=== PATIENT | female | born 1955 | race Asian ===

== ENCOUNTER 2020-03-04 11:46 | Emergency (ER) | payer MEDICARE ==
[~2020-03-04] VITALS: Ht 160 cm; Wt 100.0 kg
[2020-03-04] MEDS ORDERED: INSLAN SQ (11:50)
[2020-03-04] MEDS ORDERED: ATEN-187 PO (11:51)
[2020-03-04] MEDS ORDERED: LISI-662 PO (11:51)
[2020-03-04] MEDS ORDERED: SITA1TBM7 PO (11:51)
[2020-03-04 12:33] VITALS: BP 121/66
[2020-03-04] MEDS ORDERED: AMLO10TA55 PO (12:43)
[2020-03-04] MEDS ORDERED: SITA1TAB6 PO (12:43)
== END 2020-03-04 13:51 | disposition home or self-care (01) ==
LOC: EMS 11:48
DX: L25.9 Unspecified contact dermatitis, unspecified cause (principal); E11.9 Type 2 diabetes mellitus without complications; I10 Essential (primary) hypertension; Z79.4 Long term (current) use of insulin; Z79.899 Other long term (current) drug therapy; Z88.1 Allergy status to other antibiotic agents

== ENCOUNTER 2020-12-07 13:31 | Inpatient (IN) | payer MEDICARE, OTHER ==
[~2020-12-07] VITALS: Ht 160 cm; Wt 85.4 kg
[~2020-12-07 13:31] MED LIST: AMLO10TA55 PO; ATEN-187 PO; INSLAN SQ; LISI-894 PO; SITA1TAB6 PO
[2020-12-07 15:30] LABS: ABG A-A DIFF O2 57.3 mmHg (10-20.0); ABG BASE EXCESS -3.4 mmol/L (-2.0-3.0); ABG CARBOXYHEMOGLOBIN 0.7 % (0.0-1.5); ABG METHEMOGLOBIN 0.3 % (0.0-1.5); ABG OXYGEN CONTENT 16.5 mL/dL (15.0-23.0); ABG OXYGEN SATURATION 88.7 % (95.0-98.0); ABG OXYHEMOGLOBIN 87.8 % (94.0-100.0); ABG PCO2 35 mmHg (35-45); ABG PH 7.404 (7.35-7.450); ABG TOTAL HEMOGLOBIN 13.4 G/dL (12.0-18.0); PO2, ARTERIAL BG 50.6 mmHg (79.0-87.0); SOURCE, BLOOD GAS ARTERIAL; TEMPERATURE, FAHRENHEIT, BG 98.6 FAHREN (96.0-98.6)
[2020-12-07] MEDS ORDERED: DEXAMETHASONE SOD PHOS 4 MG/ML VIAL IVP ONE (15:30)
[2020-12-07 15:32] LABS: O2 DEVICE,BLOOD GAS ROOM AIR (ROOM AIR); SITE, BLOOD GAS RT RADIAL
[2020-12-07 15:48] LABS: BASOPHILS % (AUTO) 0.4 % (0.0-2.0); EOSINOPHILS % (AUTO) 0.1 % (1.0-6.0); HEMATOCRIT 38.8 % (36-46); HEMOGLOBIN 12.9 g/dL (12.0-16.0); LYMPHOCYTES % (AUTO) 15.1 % (22.0-44.0); MEAN CORPUSCULAR HEMOGLOBIN 30.9 pg (26.0-34.0); MEAN CORPUSCULAR HGB CONC 33.3 G/dL (31.0-37.0); MEAN CORPUSCULAR VOLUME 93 fL (80-100); MONOCYTES # (AUTO) 0.4 K/uL (0.1-1.0); MONOCYTES % (AUTO) 5.2 % (2.0-9.0); NEUTROPHILS # (AUTO) 5.4 K/uL (1.8-7.7); NEUTROPHILS % (AUTO) 79.2 % (40.0-70.0); PLATELET COUNT (AUTO) 197 K/uL (150-450); RED BLOOD CELL COUNT(AUTO) 4.19 MIL/uL (4.00-5.20); RED CELL DISTRIBUTION WIDTH 13.1 % (11.5-14.5)
[2020-12-07 15:50] LABS: ANION GAP 15 mmol/L (8-16); CALCIUM, TOTAL 10.1 mg/dL (8.8-10.5); CARBON DIOXIDE 22 mmol/L (22-29); CHLORIDE 101 mmol/L (98-107); CREATININE 0.92 mg/dL (0.60-1.30); GLOMERULAR FILTR. RATE CALC > 60 mL/min (>60); GLUCOSE,RANDOM 237 mg/dL (70-110); POTASSIUM 3.7 mmol/L (3.5-5.1); SODIUM SERUM 138 mmol/L (136-145); UREA NITROGEN, BLOOD 8 mg/dL (7-18)
[2020-12-07 15:55] LABS: ALANINE AMINOTRANSFERASE 35 U/L (12-78); ALBUMIN 2.9 g/dL (3.4-5.0); ALKALINE PHOSPHATASE 81 U/L (46-116); ASPARTATE AMINOTRANSFERASE 45 U/L (15-37); BILIRUBIN,TOTAL 0.4 mg/dL (0.1-1.0); TOTAL PROTEIN, SERUM 8.2 g/dL (6.4-8.2)
[2020-12-07 15:58] LABS: INFLUENZA TYPE A NEGATIVE FOR TYPE A (NEGATIVE); INFLUENZA TYPE B NEGATIVE FOR TYPE B (NEGATIVE)
[2020-12-07 16:14] LABS: B-TYPE NATRIURETIC PEPTIDE 23 pg/mL (0-100)
[2020-12-07] MEDS ORDERED: DOXYCYCLINE HYCLATE 100 MG in DEXTROSE 5%-WATER 100 ML IV ONE (16:30)
[2020-12-07] MEDS ORDERED: CefTRIAXone 1 GM/DEXTROSE 50 ML IV ONE (16:30)
[2020-12-07] MEDS ORDERED: DEXTROSE 50%-WATER 25 GM/50 ML SYRINGE IVP PRN (16:45)
[2020-12-07] MEDS ORDERED: ONDANSETRON HCL 4 MG/2 ML VIAL IVP PRN (16:45)
[2020-12-07] MEDS ORDERED: ACETAMINOPHEN 325 MG TABLET PO PRN (16:45)
[2020-12-07 17:05] LABS: D-DIMER 1.84 mg/L FEU (0.00-0.50); PROTHROMBIN TIME 10.5 SEC (9.4-11.6)
[2020-12-07 17:28] LABS: C-REACTIVE PROTEIN QUANT 16.03 mg/dL (0.00-0.30)
[2020-12-07] MEDS ORDERED: REMDESIVIR 200 MG in SODIUM CHLORIDE 0.9% 250 ML IV ONE (18:00)
[2020-12-07] MEDS: INSULIN LISPRO 100 UNITS/ML SQ PRN ×2 (18:08→21:19)
[2020-12-07 18:16] LABS: GLUCOSE,POINT OF CARE 234 MG/DL (70-110)
[2020-12-07 19:36] VITALS: BP 131/87
[2020-12-07] MEDS: DOCUSATE SODIUM 100 MG CAPSULE PO SCH (20:56)
[2020-12-07] MEDS: BENZONATATE 100 MG CAPSULE PO PRN (20:56)
[2020-12-07] MEDS: APIXABAN 5 MG TABLET PO SCH (20:56)
[2020-12-07 22:02] LABS: GLUCOMETER DEV NAME(LOC) 5N.1B; GLUCOSE,POINT OF CARE 211 MG/DL (70-110)
[2020-12-08] MEDS ORDERED: PNEUMOCOCCAL VACCINE POLYVALENT 0.5 ML VIAL [PPSV23] IM ONE (00:15)
[2020-12-08 00:20] VITALS: BP 147/73
[2020-12-08] MEDS: MELATONIN 3 MG TABLET PO PRN (02:32)
[2020-12-08 03:30] VITALS: BP 146/74
[2020-12-08] MEDS: INSULIN LISPRO 100 UNITS/ML SQ PRN ×4 (05:47→21:49)
[2020-12-08 07:05] LABS: ALANINE AMINOTRANSFERASE 30 U/L (12-78); ALBUMIN 2.2 g/dL (3.4-5.0); ALKALINE PHOSPHATASE 62 U/L (46-116); ANION GAP 10 mmol/L (8-16); ASPARTATE AMINOTRANSFERASE 27 U/L (15-37); BILIRUBIN,TOTAL 0.3 mg/dL (0.1-1.0); CALCIUM, TOTAL 9.3 mg/dL (8.8-10.5); CARBON DIOXIDE 24 mmol/L (22-29); CHLORIDE 104 mmol/L (98-107); CREATININE 0.68 mg/dL (0.60-1.30); GLOMERULAR FILTR. RATE CALC > 60 mL/min (>60); GLUCOSE,RANDOM 265 mg/dL (70-110); POTASSIUM 4.2 mmol/L (3.5-5.1); SODIUM SERUM 138 mmol/L (136-145); TOTAL PROTEIN, SERUM 7.1 g/dL (6.4-8.2); UREA NITROGEN, BLOOD 11 mg/dL (7-18)
[2020-12-08 08:03] VITALS: BP 154/76
[2020-12-08] MEDS: BENZONATATE 100 MG CAPSULE PO PRN (08:14)
[2020-12-08] MEDS: DEXAMETHASONE SOD PHOS 4 MG/ML VIAL IVP SCH (08:14)
[2020-12-08] MEDS: AmLODIPine BESYLATE 5 MG TABLET PO SCH (08:15)
[2020-12-08] MEDS: FAMOTIDINE 20 MG TABLET PO SCH (08:15)
[2020-12-08] MEDS: APIXABAN 5 MG TABLET PO SCH ×2 (08:15→21:37)
[2020-12-08] MEDS: MULTIVITAMINS WITH MINERALS, THERAPEUTIC TABLET PO SCH (08:15)
[2020-12-08] MEDS: DOCUSATE SODIUM 100 MG CAPSULE PO SCH ×2 (08:15→21:37)
[2020-12-08 11:19] VITALS: BP 133/65
[2020-12-08 15:43] VITALS: BP 134/67
[2020-12-08] MEDS ORDERED: SODIUM CHLORIDE 0.9% 250 ML IV ONE (16:49)
[2020-12-08] MEDS: CefTRIAXone 1 GM/DEXTROSE 50 ML IV SCH (16:59)
[2020-12-08] MEDS: REMDESIVIR 100 MG in SODIUM CHLORIDE 0.9% 250 ML IV SCH (18:01)
[2020-12-08] MEDS: MetFORMIN HCL 500 MG TABLET PO SCH (18:36)
[2020-12-08 20:08] LABS: GLUCOMETER DEV NAME(LOC) 5S.1; GLUCOSE,POINT OF CARE 239 MG/DL (70-110)
[2020-12-08 20:08] LABS: GLUCOMETER DEV NAME(LOC) 5N.1B; GLUCOSE,POINT OF CARE 280 MG/DL (70-110)
[2020-12-08 20:08] LABS: GLUCOMETER DEV NAME(LOC) 5S.1; GLUCOSE,POINT OF CARE 286 MG/DL (70-110)
[2020-12-08 20:10] VITALS: BP 143/64
[2020-12-08] MEDS: CHOLECALCIFEROL (VIT D3) 1,000 UNITS [25 MCG] TABLET PO SCH (21:37)
[2020-12-08] MEDS: ZINC SULFATE 220 MG CAPSULE PO SCH (21:37)
[2020-12-08] MEDS: ASCORBIC ACID 500 MG TABLET PO SCH (21:37)
[2020-12-09] VITALS (7 sets, daily range): BP systolic 106–152; BP diastolic 67–78
[2020-12-09] MEDS: MELATONIN 3 MG TABLET PO PRN ×2 (00:32→23:42)
[2020-12-09 01:16] LABS: GLUCOMETER DEV NAME(LOC) 5N.1B; GLUCOSE,POINT OF CARE 346 MG/DL (70-110)
[2020-12-09] MEDS: INSULIN LISPRO 100 UNITS/ML SQ PRN ×4 (06:14→21:13)
[2020-12-09] MEDS: BENZONATATE 100 MG CAPSULE PO PRN ×2 (06:29→23:42)
[2020-12-09 07:07] LABS: GLUCOMETER DEV NAME(LOC) 5N.1B; GLUCOSE,POINT OF CARE 278 MG/DL (70-110)
[2020-12-09 07:35] LABS: ALANINE AMINOTRANSFERASE 30 U/L (12-78); ALBUMIN 2.1 g/dL (3.4-5.0); ALKALINE PHOSPHATASE 67 U/L (46-116); ANION GAP 10 mmol/L (8-16); ASPARTATE AMINOTRANSFERASE 17 U/L (15-37); BILIRUBIN,TOTAL 0.2 mg/dL (0.1-1.0); C-REACTIVE PROTEIN QUANT 9.89 mg/dL (0.00-0.30); CALCIUM, TOTAL 9.8 mg/dL (8.8-10.5); CARBON DIOXIDE 24 mmol/L (22-29); CHLORIDE 104 mmol/L (98-107); CREATININE 0.74 mg/dL (0.60-1.30); GLOMERULAR FILTR. RATE CALC > 60 mL/min (>60); GLUCOSE,RANDOM 304 mg/dL (70-110); POTASSIUM 4.6 mmol/L (3.5-5.1); SODIUM SERUM 138 mmol/L (136-145); TOTAL PROTEIN, SERUM 6.8 g/dL (6.4-8.2); UREA NITROGEN, BLOOD 25 mg/dL (7-18)
[2020-12-09] MEDS: ZINC SULFATE 220 MG CAPSULE PO SCH ×2 (08:35→20:59)
[2020-12-09] MEDS: CHOLECALCIFEROL (VIT D3) 1,000 UNITS [25 MCG] TABLET PO SCH (08:35)
[2020-12-09] MEDS: AmLODIPine BESYLATE 5 MG TABLET PO SCH (08:35)
[2020-12-09] MEDS: DOCUSATE SODIUM 100 MG CAPSULE PO SCH ×2 (08:35→20:59)
[2020-12-09] MEDS: ASCORBIC ACID 500 MG TABLET PO SCH ×2 (08:35→20:59)
[2020-12-09] MEDS: DEXAMETHASONE SOD PHOS 4 MG/ML VIAL IVP SCH (08:35)
[2020-12-09] MEDS: MetFORMIN HCL 500 MG TABLET PO SCH ×2 (08:35→17:21)
[2020-12-09] MEDS: APIXABAN 5 MG TABLET PO SCH ×2 (08:35→20:59)
[2020-12-09] MEDS: FAMOTIDINE 20 MG TABLET PO SCH (08:35)
[2020-12-09] MEDS: MULTIVITAMINS WITH MINERALS, THERAPEUTIC TABLET PO SCH (08:35)
[2020-12-09] MEDS: INSULIN GLARGINE,HUM.REC.ANLOG 100 UNITS/ML SQ SCH ×2 (11:17→21:14)
[2020-12-09] MEDS: CefTRIAXone 1 GM/DEXTROSE 50 ML IV SCH (15:52)
[2020-12-09] MEDS: REMDESIVIR 100 MG in SODIUM CHLORIDE 0.9% 250 ML IV SCH (17:52)
[2020-12-09 18:31] LABS: GLUCOMETER DEV NAME(LOC) 5N.1B; GLUCOSE,POINT OF CARE 359 MG/DL (70-110)
[2020-12-09 18:31] LABS: GLUCOMETER DEV NAME(LOC) 5N.1B; GLUCOSE,POINT OF CARE 348 MG/DL (70-110)
[2020-12-09 21:54] LABS: GLUCOMETER DEV NAME(LOC) 5S.1; GLUCOSE,POINT OF CARE 317 MG/DL (70-110)
[2020-12-10 06:00] VITALS: BP 136/68
[2020-12-10] MEDS: INSULIN LISPRO 100 UNITS/ML SQ PRN ×4 (06:44→21:09)
[2020-12-10 06:53] LABS: GLUCOMETER DEV NAME(LOC) 5N.1B; GLUCOSE,POINT OF CARE 227 MG/DL (70-110)
[2020-12-10 08:59] VITALS: BP 136/72
[2020-12-10 09:03] LABS: ALANINE AMINOTRANSFERASE 26 U/L (12-78); ALBUMIN 2.1 g/dL (3.4-5.0); ALKALINE PHOSPHATASE 72 U/L (46-116); ANION GAP 9 mmol/L (8-16); ASPARTATE AMINOTRANSFERASE 17 U/L (15-37); BILIRUBIN,TOTAL 0.3 mg/dL (0.1-1.0); CALCIUM, TOTAL 9.4 mg/dL (8.8-10.5); CARBON DIOXIDE 27 mmol/L (22-29); CHLORIDE 104 mmol/L (98-107); CREATININE 0.64 mg/dL (0.60-1.30); GLOMERULAR FILTR. RATE CALC > 60 mL/min (>60); GLUCOSE,RANDOM 228 mg/dL (70-110); POTASSIUM 4.3 mmol/L (3.5-5.1); SODIUM SERUM 140 mmol/L (136-145); TOTAL PROTEIN, SERUM 6.3 g/dL (6.4-8.2); UREA NITROGEN, BLOOD 25 mg/dL (7-18)
[2020-12-10] MEDS: ASCORBIC ACID 500 MG TABLET PO SCH ×2 (09:31→20:56)
[2020-12-10] MEDS: APIXABAN 5 MG TABLET PO SCH ×2 (09:31→20:56)
[2020-12-10] MEDS: DOCUSATE SODIUM 100 MG CAPSULE PO SCH ×2 (09:31→20:56)
[2020-12-10] MEDS: ZINC SULFATE 220 MG CAPSULE PO SCH ×2 (09:31→20:56)
[2020-12-10] MEDS: CHOLECALCIFEROL (VIT D3) 1,000 UNITS [25 MCG] TABLET PO SCH (09:31)
[2020-12-10] MEDS: AmLODIPine BESYLATE 5 MG TABLET PO SCH (09:31)
[2020-12-10] MEDS: FAMOTIDINE 20 MG TABLET PO SCH (09:31)
[2020-12-10] MEDS: MetFORMIN HCL 500 MG TABLET PO SCH ×2 (09:31→18:28)
[2020-12-10] MEDS: MULTIVITAMINS WITH MINERALS, THERAPEUTIC TABLET PO SCH (09:31)
[2020-12-10] MEDS: DEXAMETHASONE SOD PHOS 4 MG/ML VIAL IVP SCH (09:32)
[2020-12-10] MEDS: INSULIN GLARGINE,HUM.REC.ANLOG 100 UNITS/ML SQ SCH ×2 (09:40→21:14)
[2020-12-10 12:00] VITALS: BP 134/74
[2020-12-10 14:27] LABS: GLUCOMETER DEV NAME(LOC) 5N.1B; GLUCOSE,POINT OF CARE 224 MG/DL (70-110)
[2020-12-10 14:27] LABS: GLUCOMETER DEV NAME(LOC) 5N.1B; GLUCOSE,POINT OF CARE 264 MG/DL (70-110)
[2020-12-10 16:00] VITALS: BP 158/73
[2020-12-10] MEDS: CefTRIAXone 1 GM/DEXTROSE 50 ML IV SCH (16:24)
[2020-12-10 18:28] LABS: GLUCOMETER DEV NAME(LOC) 5S.1; GLUCOSE,POINT OF CARE 329 MG/DL (70-110)
[2020-12-10] MEDS: REMDESIVIR 100 MG in SODIUM CHLORIDE 0.9% 250 ML IV SCH (18:30)
[2020-12-10] MEDS: GuaiFENesin/CODEINE [SUGAR FREE] 200-20MG/10 ML SYRUP UDCUP PO PRN (20:56)
[2020-12-10 21:04] VITALS: BP 143/74
[2020-12-10] MEDS: MELATONIN 3 MG TABLET PO PRN (21:18)
[2020-12-11 00:24] VITALS: BP 123/77
[2020-12-11 04:56] VITALS: BP 137/71
[2020-12-11 05:02] LABS: GLUCOMETER DEV NAME(LOC) 5N.1B; GLUCOSE,POINT OF CARE 341 MG/DL (70-110)
[2020-12-11] MEDS: BENZONATATE 100 MG CAPSULE PO PRN ×2 (06:19→20:11)
[2020-12-11] MEDS: INSULIN LISPRO 100 UNITS/ML SQ PRN ×4 (06:32→21:19)
[2020-12-11 06:45] LABS: BASOPHILS % (AUTO) 0.1 % (0.0-2.0); EOSINOPHILS % (AUTO) 0.1 % (1.0-6.0); HEMATOCRIT 36.8 % (36-46); HEMOGLOBIN 12.4 g/dL (12.0-16.0); LYMPHOCYTES # (AUTO) 1.2 K/uL (1.0-4.8); MEAN CORPUSCULAR HEMOGLOBIN 30.7 pg (26.0-34.0); MEAN CORPUSCULAR HGB CONC 33.6 G/dL (31.0-37.0); MEAN CORPUSCULAR VOLUME 91 fL (80-100); MONOCYTES # (AUTO) 0.6 K/uL (0.1-1.0); NEUTROPHILS # (AUTO) 3.8 K/uL (1.8-7.7); NEUTROPHILS % (AUTO) 67.8 % (40.0-70.0); PLATELET COUNT (AUTO) 301 K/uL (150-450); RED BLOOD CELL COUNT(AUTO) 4.03 MIL/uL (4.00-5.20); RED CELL DISTRIBUTION WIDTH 13.1 % (11.5-14.5)
[2020-12-11 07:01] LABS: ALANINE AMINOTRANSFERASE 27 U/L (12-78); ALBUMIN 2.2 g/dL (3.4-5.0); ALKALINE PHOSPHATASE 77 U/L (46-116); ANION GAP 9 mmol/L (8-16); ASPARTATE AMINOTRANSFERASE 15 U/L (15-37); BILIRUBIN,TOTAL 0.3 mg/dL (0.1-1.0); CALCIUM, TOTAL 9.2 mg/dL (8.8-10.5); CARBON DIOXIDE 27 mmol/L (22-29); CHLORIDE 104 mmol/L (98-107); CREATININE 0.67 mg/dL (0.60-1.30); GLOMERULAR FILTR. RATE CALC > 60 mL/min (>60); GLUCOSE,RANDOM 247 mg/dL (70-110); POTASSIUM 4.5 mmol/L (3.5-5.1); SODIUM SERUM 140 mmol/L (136-145); TOTAL PROTEIN, SERUM 6.3 g/dL (6.4-8.2); UREA NITROGEN, BLOOD 24 mg/dL (7-18)
[2020-12-11 07:31] LABS: GLUCOMETER DEV NAME(LOC) 5S.1; GLUCOSE,POINT OF CARE 248 MG/DL (70-110)
[2020-12-11 08:00] VITALS: BP 131/72
[2020-12-11] MEDS: AmLODIPine BESYLATE 5 MG TABLET PO SCH (08:51)
[2020-12-11] MEDS: ASCORBIC ACID 500 MG TABLET PO SCH ×2 (08:51→20:11)
[2020-12-11] MEDS: DOCUSATE SODIUM 100 MG CAPSULE PO SCH ×2 (08:51→20:11)
[2020-12-11] MEDS: MetFORMIN HCL 500 MG TABLET PO SCH ×2 (08:51→17:56)
[2020-12-11] MEDS: MULTIVITAMINS WITH MINERALS, THERAPEUTIC TABLET PO SCH (08:51)
[2020-12-11] MEDS: DEXAMETHASONE SOD PHOS 4 MG/ML VIAL IVP SCH (08:52)
[2020-12-11] MEDS: APIXABAN 5 MG TABLET PO SCH ×2 (08:52→20:11)
[2020-12-11] MEDS: CHOLECALCIFEROL (VIT D3) 1,000 UNITS [25 MCG] TABLET PO SCH (08:52)
[2020-12-11] MEDS: ZINC SULFATE 220 MG CAPSULE PO SCH ×2 (08:52→20:11)
[2020-12-11] MEDS: FAMOTIDINE 20 MG TABLET PO SCH (08:52)
[2020-12-11] MEDS ORDERED: INSULIN GLARGINE,HUM.REC.ANLOG 100 UNITS/ML SQ SCH (09:00)
[2020-12-11] MEDS: ALBUTEROL SULFATE HFA 90 MCG/PUFF 8 GM INHALER IH PRN (09:06)
[2020-12-11 09:52] LABS: GLUCOMETER DEV NAME(LOC) 5N.1B; GLUCOSE,POINT OF CARE 256 MG/DL (70-110)
[2020-12-11 12:00] VITALS: BP 151/61
[2020-12-11 12:23] LABS: GLUCOMETER DEV NAME(LOC) 5N.1B; GLUCOSE,POINT OF CARE 345 MG/DL (70-110)
[2020-12-11] MEDS: CefTRIAXone 1 GM/DEXTROSE 50 ML IV SCH (15:47)
[2020-12-11 16:32] VITALS: BP 128/73
[2020-12-11] MEDS: REMDESIVIR 100 MG in SODIUM CHLORIDE 0.9% 250 ML IV SCH (17:54)
[2020-12-11] MEDS ORDERED: INSULIN LISPRO 100 UNITS/ML SQ ONE (18:15)
[2020-12-11 19:57] VITALS: BP 139/79
[2020-12-11] MEDS: MELATONIN 3 MG TABLET PO PRN (20:11)
[2020-12-11 20:41] LABS: GLUCOMETER DEV NAME(LOC) 5S.1; GLUCOSE,POINT OF CARE 426 MG/DL (70-110)
[2020-12-11] MEDS: INSULIN GLARGINE,HUM.REC.ANLOG 100 UNITS/ML SQ SCH (21:18)
[2020-12-12] VITALS: BP 140/67
[2020-12-12 04:42] VITALS: BP 136/71
[2020-12-12] MEDS: INSULIN LISPRO 100 UNITS/ML SQ PRN ×4 (05:48→21:21)
[2020-12-12 06:33] LABS: GLUCOMETER DEV NAME(LOC) 5N.1B; GLUCOSE,POINT OF CARE 299 MG/DL (70-110)
[2020-12-12 06:34] LABS: GLUCOMETER DEV NAME(LOC) 5N.1B; GLUCOSE,POINT OF CARE 259 MG/DL (70-110)
[2020-12-12 07:36] VITALS: BP 138/78
[2020-12-12] MEDS: DOCUSATE SODIUM 100 MG CAPSULE PO SCH ×2 (08:33→21:19)
[2020-12-12] MEDS: MetFORMIN HCL 500 MG TABLET PO SCH ×2 (08:33→17:25)
[2020-12-12] MEDS: AmLODIPine BESYLATE 5 MG TABLET PO SCH (08:33)
[2020-12-12] MEDS: APIXABAN 5 MG TABLET PO SCH ×2 (08:33→21:19)
[2020-12-12] MEDS: DEXAMETHASONE SOD PHOS 4 MG/ML VIAL IVP SCH (08:33)
[2020-12-12] MEDS: ZINC SULFATE 220 MG CAPSULE PO SCH ×2 (08:33→21:19)
[2020-12-12] MEDS: MULTIVITAMINS WITH MINERALS, THERAPEUTIC TABLET PO SCH (08:34)
[2020-12-12] MEDS: ASCORBIC ACID 500 MG TABLET PO SCH ×2 (08:34→21:19)
[2020-12-12] MEDS: CHOLECALCIFEROL (VIT D3) 1,000 UNITS [25 MCG] TABLET PO SCH (08:34)
[2020-12-12] MEDS: FAMOTIDINE 20 MG TABLET PO SCH (08:34)
[2020-12-12] MEDS: INSULIN GLARGINE,HUM.REC.ANLOG 100 UNITS/ML SQ SCH ×2 (08:36→21:20)
[2020-12-12 10:34] VITALS: BP 132/66
[2020-12-12 15:36] VITALS: BP 120/61
[2020-12-12] MEDS: CefTRIAXone 1 GM/DEXTROSE 50 ML IV SCH (17:25)
[2020-12-12 20:16] LABS: GLUCOMETER DEV NAME(LOC) 5N.1B; GLUCOSE,POINT OF CARE 307 MG/DL (70-110)
[2020-12-12 20:16] LABS: GLUCOMETER DEV NAME(LOC) 5N.1B; GLUCOSE,POINT OF CARE 394 MG/DL (70-110)
[2020-12-12 20:37] VITALS: BP 130/82
[2020-12-13 00:37] VITALS: BP 104/65
[2020-12-13] MEDS: BENZONATATE 100 MG CAPSULE PO PRN ×2 (02:01→10:39)
[2020-12-13] MEDS: MELATONIN 3 MG TABLET PO PRN ×2 (02:05→20:30)
[2020-12-13 04:27] LABS: GLUCOMETER DEV NAME(LOC) 5N.1B; GLUCOSE,POINT OF CARE 366 MG/DL (70-110)
[2020-12-13 05:45] VITALS: BP 151/81
[2020-12-13] MEDS: INSULIN LISPRO 100 UNITS/ML SQ PRN ×4 (06:00→20:31)
[2020-12-13 07:08] LABS: ANION GAP 7 mmol/L (8-16); CALCIUM, TOTAL 9.4 mg/dL (8.8-10.5); CARBON DIOXIDE 29 mmol/L (22-29); CHLORIDE 101 mmol/L (98-107); CREATININE 0.69 mg/dL (0.60-1.30); GLOMERULAR FILTR. RATE CALC > 60 mL/min (>60); GLUCOSE,RANDOM 316 mg/dL (70-110); POTASSIUM 4.7 mmol/L (3.5-5.1); SODIUM SERUM 137 mmol/L (136-145); UREA NITROGEN, BLOOD 26 mg/dL (7-18)
[2020-12-13 07:18] LABS: BASOPHILS % (AUTO) 0.3 % (0.0-2.0); EOSINOPHILS % (AUTO) 0.7 % (1.0-6.0); HEMATOCRIT 40.3 % (36-46); HEMOGLOBIN 13.2 g/dL (12.0-16.0); LYMPHOCYTES # (AUTO) 1.6 K/uL (1.0-4.8); LYMPHOCYTES % (AUTO) 17.5 % (22.0-44.0); MEAN CORPUSCULAR HEMOGLOBIN 30.7 pg (26.0-34.0); MEAN CORPUSCULAR HGB CONC 32.7 G/dL (31.0-37.0); MEAN CORPUSCULAR VOLUME 94 fL (80-100); MONOCYTES # (AUTO) 0.7 K/uL (0.1-1.0); MONOCYTES % (AUTO) 8.2 % (2.0-9.0); NEUTROPHILS # (AUTO) 6.5 K/uL (1.8-7.7); NEUTROPHILS % (AUTO) 73.3 % (40.0-70.0); PLATELET COUNT (AUTO) 352 K/uL (150-450)
[2020-12-13] MEDS: CHOLECALCIFEROL (VIT D3) 1,000 UNITS [25 MCG] TABLET PO SCH (08:17)
[2020-12-13] MEDS: ZINC SULFATE 220 MG CAPSULE PO SCH ×2 (08:17→20:30)
[2020-12-13] MEDS: AmLODIPine BESYLATE 5 MG TABLET PO SCH (08:17)
[2020-12-13] MEDS: ASCORBIC ACID 500 MG TABLET PO SCH ×2 (08:17→20:30)
[2020-12-13] MEDS: MULTIVITAMINS WITH MINERALS, THERAPEUTIC TABLET PO SCH (08:17)
[2020-12-13] MEDS: FAMOTIDINE 20 MG TABLET PO SCH (08:18)
[2020-12-13] MEDS: APIXABAN 5 MG TABLET PO SCH ×2 (08:18→20:30)
[2020-12-13] MEDS: DOCUSATE SODIUM 100 MG CAPSULE PO SCH ×2 (08:18→20:30)
[2020-12-13] MEDS: DEXAMETHASONE SOD PHOS 4 MG/ML VIAL IVP SCH (08:18)
[2020-12-13] MEDS: MetFORMIN HCL 500 MG TABLET PO SCH ×2 (08:18→17:00)
[2020-12-13] MEDS: INSULIN GLARGINE,HUM.REC.ANLOG 100 UNITS/ML SQ SCH ×2 (08:20→20:31)
[2020-12-13 10:38] VITALS: BP 156/84
[2020-12-13] MEDS: ALBUTEROL SULFATE HFA 90 MCG/PUFF 8 GM INHALER IH PRN (14:55)
[2020-12-13 15:18] VITALS: BP 154/76
[2020-12-13] MEDS: CefTRIAXone 1 GM/DEXTROSE 50 ML IV SCH (17:00)
[2020-12-13 19:59] VITALS: BP 149/73
[2020-12-13] MEDS: GuaiFENesin/CODEINE [SUGAR FREE] 200-20MG/10 ML SYRUP UDCUP PO PRN (20:30)
[2020-12-13 23:57] VITALS: BP 130/83
[2020-12-14 04:37] VITALS: BP 136/82
[2020-12-14] MEDS: INSULIN LISPRO 100 UNITS/ML SQ PRN ×3 (06:09→21:18)
[2020-12-14 06:38] LABS: GLUCOMETER DEV NAME(LOC) 5S.1; GLUCOSE,POINT OF CARE 359 MG/DL (70-110)
[2020-12-14 06:39] LABS: GLUCOMETER DEV NAME(LOC) 5N.1B; GLUCOSE,POINT OF CARE 351 MG/DL (70-110)
[2020-12-14 06:39] LABS: GLUCOMETER DEV NAME(LOC) 5N.1B; GLUCOSE,POINT OF CARE 300 MG/DL (70-110)
[2020-12-14 06:39] LABS: GLUCOMETER DEV NAME(LOC) 5N.1B; GLUCOSE,POINT OF CARE 386 MG/DL (70-110)
[2020-12-14 06:39] LABS: GLUCOMETER DEV NAME(LOC) 5S.1; GLUCOSE,POINT OF CARE 289 MG/DL (70-110)
[2020-12-14 07:40] VITALS: BP 132/80
[2020-12-14] MEDS: DEXAMETHASONE SOD PHOS 4 MG/ML VIAL IVP SCH (10:03)
[2020-12-14] MEDS: MULTIVITAMINS WITH MINERALS, THERAPEUTIC TABLET PO SCH (10:04)
[2020-12-14] MEDS: APIXABAN 5 MG TABLET PO SCH ×2 (10:04→21:03)
[2020-12-14] MEDS: AmLODIPine BESYLATE 5 MG TABLET PO SCH (10:04)
[2020-12-14] MEDS: CHOLECALCIFEROL (VIT D3) 1,000 UNITS [25 MCG] TABLET PO SCH (10:04)
[2020-12-14] MEDS: ASCORBIC ACID 500 MG TABLET PO SCH ×2 (10:04→21:03)
[2020-12-14] MEDS: MetFORMIN HCL 500 MG TABLET PO SCH ×2 (10:04→16:55)
[2020-12-14] MEDS: ZINC SULFATE 220 MG CAPSULE PO SCH ×2 (10:04→21:03)
[2020-12-14] MEDS: FAMOTIDINE 20 MG TABLET PO SCH (10:04)
[2020-12-14] MEDS: DOCUSATE SODIUM 100 MG CAPSULE PO SCH ×2 (10:04→21:03)
[2020-12-14] MEDS: INSULIN GLARGINE,HUM.REC.ANLOG 100 UNITS/ML SQ SCH ×2 (10:07→21:19)
[2020-12-14 11:01] VITALS: BP 163/73
[2020-12-14 12:32] LABS: GLUCOMETER DEV NAME(LOC) 5N.1B; GLUCOSE,POINT OF CARE 334 MG/DL (70-110)
[2020-12-14 13:45] LABS: COVID AG,FIA SOURCE NASOPHARYNGEAL
[2020-12-14 14:28] LABS: ABG A-A DIFF O2 27.5 mmHg (10-20.0); ABG BASE EXCESS -2.3 mmol/L (-2.0-3.0); ABG CARBOXYHEMOGLOBIN 1.1 % (0.0-1.5); ABG HCO3 22.8 mmol/L (22.0-26.0); ABG METHEMOGLOBIN 0.3 % (0.0-1.5); ABG OXYGEN CONTENT 19.2 mL/dL (15.0-23.0); ABG OXYGEN SATURATION 95.4 % (95.0-98.0); ABG OXYHEMOGLOBIN 94.1 % (94.0-100.0); ABG PCO2 38 mmHg (35-45); ABG PH 7.389 (7.35-7.450); ABG TOTAL HEMOGLOBIN 14.5 G/dL (12.0-18.0); PO2, ARTERIAL BG 76.2 mmHg (79.0-87.0); SOURCE, BLOOD GAS ARTERIAL; TEMPERATURE, FAHRENHEIT, BG 98.6 FAHREN (96.0-98.6)
[2020-12-14 14:29] LABS: O2 DEVICE,BLOOD GAS ROOM AIR (ROOM AIR); SITE, BLOOD GAS RT RADIAL
[2020-12-14 16:47] VITALS: BP 142/82
[2020-12-14] MEDS: CefTRIAXone 1 GM/DEXTROSE 50 ML IV SCH (16:55)
[2020-12-14] MEDS ORDERED: INSULIN LISPRO 100 UNITS/ML SQ ONE ×2 (17:00→18:45)
[2020-12-14] MEDS ORDERED: APIX5TAB PO (20:59)
[2020-12-14] MEDS ORDERED: ASCO500C6 PO (21:01)
[2020-12-14] MEDS ORDERED: AMLO5TAB66 PO (21:01)
[2020-12-14] MEDS: GuaiFENesin/CODEINE [SUGAR FREE] 200-20MG/10 ML SYRUP UDCUP PO PRN (21:04)
[2020-12-14] MEDS ORDERED: CHOL100044 PO (21:07)
[2020-12-14] MEDS ORDERED: FAMO20 PO (21:09)
[2020-12-14] MEDS ORDERED: INSLAN SQ (21:12)
[2020-12-14] MEDS ORDERED: MULT-1336 PO (21:14)
[2020-12-14] MEDS ORDERED: METF-444 PO (21:15)
[2020-12-14] MEDS ORDERED: ZINC220C14 PO (21:21)
[2020-12-14 21:22] VITALS: BP 157/89
[2020-12-14] MEDS ORDERED: BENZ100C68 PO (21:23)
[2020-12-14] MEDS ORDERED: INSU100V SQ (21:25)
[2020-12-14] MEDS ORDERED: LEVO750T68 PO (21:26)
[2020-12-14] MEDS ORDERED: DEXA1 PO (21:29)
[2020-12-15 07:17] LABS: GLUCOMETER DEV NAME(LOC) 5S.1; GLUCOSE,POINT OF CARE 370 MG/DL (70-110)
[2020-12-15 07:17] LABS: GLUCOMETER DEV NAME(LOC) 5N.1B; GLUCOSE,POINT OF CARE 430 MG/DL (70-110)
== END 2020-12-14 21:55 | DRG 177 ==
LOC: EMS 13:38 → 5N 16:13
PROVIDERS: ADMIT Internal Medicine; ATTEND Internal Medicine
PROC: XW033E5 Introduction of Remdesivir Anti-infective into Peripheral Vein, Percutaneous Approach, New Technology Group 5 (ICD-10-PCS; 2020-12-07)
PROC: 3E0234Z Introduction of Serum, Toxoid and Vaccine into Muscle, Percutaneous Approach (ICD-10-PCS; principal; 2020-12-08)
DX: U07.1 COVID-19 (principal); J12.82 Pneumonia due to coronavirus disease 2019; J80 Acute respiratory distress syndrome; I10 Essential (primary) hypertension; M19.90 Unspecified osteoarthritis, unspecified site; E11.65 Type 2 diabetes mellitus with hyperglycemia; E66.9 Obesity, unspecified; Z68.32 Body mass index [BMI] 32.0-32.9, adult; Z88.8 Allergy status to other drugs, medicaments and biological substances; Z79.4 Long term (current) use of insulin; Z79.899 Other long term (current) drug therapy; Z90.49 Acquired absence of other specified parts of digestive tract; Z23 Encounter for immunization; Z79.01 Long term (current) use of anticoagulants; Z83.3 Family history of diabetes mellitus
CPT/HCPCS: 36600; 82728; 82805; 83605; 83615; 84145; 85379; 85384; 86140; 87040; 87426; 87804; 93005; 97166; 99291; A9575; J0696; J1100; J1815; J3490; J3535; J7050; J7060; 36415-L1; 36415-TC; 71045-TC; U0003

== ENCOUNTER 2020-12-14 22:32 | Inpatient (IN) | payer MEDICARE, OTHER ==
[~2020-12-14] VITALS: Ht 160 cm; Wt 83.0 kg
[~2020-12-14 22:32] MED LIST changes: +AMLO5TAB66 PO; +APIX5TAB PO; +ASCO500C6 PO; +BENZ100C68 PO; +CHOL100044 PO; +DEXA1 PO; +FAMO20 PO; +INSU100V SQ; +LEVO750T68 PO; +METF-444 PO; +MULT-1336 PO; +ZINC220C14 PO
[2020-12-14 22:35] VITALS: BP 145/76
[2020-12-14] MEDS ORDERED: DEXTROSE 50%-WATER 25 GM/50 ML SYRINGE IVP PRN (23:15)
[2020-12-15] MEDS: BENZONATATE 100 MG CAPSULE PO SCH ×4 (00:14→23:34)
[2020-12-15] MEDS: ALBUTEROL SULFATE HFA 90 MCG/PUFF 8 GM INHALER IH PRN (00:14)
[2020-12-15 04:12] VITALS: BP 142/75
[2020-12-15] MEDS: INSULIN LISPRO 100 UNITS/ML SQ PRN ×4 (05:47→21:29)
[2020-12-15 06:04] LABS: BASOPHILS % (AUTO) 0.8 % (0.0-2.0); EOSINOPHILS % (AUTO) 0.5 % (1.0-6.0); HEMATOCRIT 40.9 % (36-46); HEMOGLOBIN 13.5 g/dL (12.0-16.0); LYMPHOCYTES # (AUTO) 1.7 K/uL (1.0-4.8); LYMPHOCYTES % (AUTO) 14.7 % (22.0-44.0); MEAN CORPUSCULAR HEMOGLOBIN 30.4 pg (26.0-34.0); MEAN CORPUSCULAR HGB CONC 32.9 G/dL (31.0-37.0); MEAN CORPUSCULAR VOLUME 92 fL (80-100); MONOCYTES # (AUTO) 0.8 K/uL (0.1-1.0); MONOCYTES % (AUTO) 6.6 % (2.0-9.0); NEUTROPHILS # (AUTO) 9.1 K/uL (1.8-7.7); NEUTROPHILS % (AUTO) 77.4 % (40.0-70.0); PLATELET COUNT (AUTO) 330 K/uL (150-450); RED BLOOD CELL COUNT(AUTO) 4.43 MIL/uL (4.00-5.20); RED CELL DISTRIBUTION WIDTH 13.2 % (11.5-14.5)
[2020-12-15 07:00] LABS: ALANINE AMINOTRANSFERASE 34 U/L (12-78); ALBUMIN 2.4 g/dL (3.4-5.0); ALKALINE PHOSPHATASE 116 U/L (46-116); ANION GAP 8 mmol/L (8-16); ASPARTATE AMINOTRANSFERASE 17 U/L (15-37); BILIRUBIN,TOTAL 0.3 mg/dL (0.1-1.0); CALCIUM, TOTAL 9.8 mg/dL (8.8-10.5); CARBON DIOXIDE 26 mmol/L (22-29); CHLORIDE 104 mmol/L (98-107); CREATININE 0.63 mg/dL (0.60-1.30); GLOMERULAR FILTR. RATE CALC > 60 mL/min (>60); GLUCOSE,RANDOM 243 mg/dL (70-110); POTASSIUM 4.9 mmol/L (3.5-5.1); SODIUM SERUM 138 mmol/L (136-145); TOTAL PROTEIN, SERUM 6.2 g/dL (6.4-8.2); UREA NITROGEN, BLOOD 22 mg/dL (7-18)
[2020-12-15] MEDS: OXYGEN THERAPY IH SCH ×2 (08:00→21:44)
[2020-12-15 08:03] VITALS: BP 111/79
[2020-12-15] MEDS: AmLODIPine BESYLATE 5 MG TABLET PO SCH (08:13)
[2020-12-15] MEDS: MULTIVITAMINS WITH MINERALS, THERAPEUTIC TABLET PO SCH (08:13)
[2020-12-15] MEDS: FAMOTIDINE 20 MG TABLET PO SCH (08:13)
[2020-12-15] MEDS: MetFORMIN HCL 500 MG TABLET PO SCH ×2 (08:13→17:22)
[2020-12-15] MEDS: CHOLECALCIFEROL (VIT D3) 2,000 UNITS [50 MCG] TABLET PO SCH (08:13)
[2020-12-15] MEDS: LEVOFLOXACIN 750 MG TABLET PO SCH (08:13)
[2020-12-15] MEDS: ASCORBIC ACID 500 MG TABLET PO SCH ×2 (08:13→21:21)
[2020-12-15] MEDS: ZINC SULFATE 220 MG CAPSULE PO SCH ×2 (08:13→21:24)
[2020-12-15] MEDS: APIXABAN 5 MG TABLET PO SCH ×2 (08:13→21:21)
[2020-12-15] MEDS: DEXAMETHASONE 4 MG TABLET PO SCH (08:14)
[2020-12-15] MEDS: DOCUSATE SODIUM 100 MG CAPSULE PO SCH ×3 (08:14→21:21)
[2020-12-15] MEDS: INSULIN GLARGINE,HUM.REC.ANLOG 100 UNITS/ML SQ SCH ×2 (08:26→21:28)
[2020-12-15] MEDS: ACETAMINOPHEN 325 MG TABLET PO PRN (08:27)
[2020-12-15 15:16] LABS: GLUCOMETER DEV NAME(LOC) 2WR.2B; GLUCOSE,POINT OF CARE 348 MG/DL (70-110)
[2020-12-15 16:07] VITALS: BP 159/77
[2020-12-15 18:52] LABS: GLUCOMETER DEV NAME(LOC) 2WR.2B; GLUCOSE,POINT OF CARE 342 MG/DL (70-110)
[2020-12-15] MEDS ORDERED: MELATONIN 3 MG TABLET PO SCH (21:00)
[2020-12-15] MEDS: SENNA 187 MG TABLET PO SCH (21:25)
[2020-12-15] MEDS: MELATONIN 3 MG TABLET PO SCH (21:31)
[2020-12-15 21:39] LABS: GLUCOMETER DEV NAME(LOC) 6S.1; GLUCOSE,POINT OF CARE 231 MG/DL (70-110)
[2020-12-15 22:23] LABS: GLUCOMETER DEV NAME(LOC) 2WR.2B; GLUCOSE,POINT OF CARE 373 MG/DL (70-110)
[2020-12-16 00:08] VITALS: BP 126/70
[2020-12-16 06:29] LABS: GLUCOMETER DEV NAME(LOC) 2WR.2B; GLUCOSE,POINT OF CARE 276 MG/DL (70-110)
[2020-12-16] MEDS: BENZONATATE 100 MG CAPSULE PO SCH ×3 (07:40→23:41)
[2020-12-16] MEDS: INSULIN LISPRO 100 UNITS/ML SQ PRN ×3 (07:57→21:04)
[2020-12-16 08:00] VITALS: BP 143/88
[2020-12-16] MEDS: INSULIN GLARGINE,HUM.REC.ANLOG 100 UNITS/ML SQ SCH ×2 (08:00→21:04)
[2020-12-16] MEDS: DOCUSATE SODIUM 100 MG CAPSULE PO SCH ×2 (08:07→20:59)
[2020-12-16] MEDS: MetFORMIN HCL 500 MG TABLET PO SCH ×2 (08:07→18:43)
[2020-12-16] MEDS: DEXAMETHASONE 4 MG TABLET PO SCH (08:08)
[2020-12-16] MEDS: ZINC SULFATE 220 MG CAPSULE PO SCH ×2 (08:08→20:59)
[2020-12-16] MEDS: AmLODIPine BESYLATE 5 MG TABLET PO SCH (08:08)
[2020-12-16] MEDS: LEVOFLOXACIN 750 MG TABLET PO SCH (08:08)
[2020-12-16] MEDS: APIXABAN 5 MG TABLET PO SCH ×2 (08:08→21:00)
[2020-12-16] MEDS: FAMOTIDINE 20 MG TABLET PO SCH (08:08)
[2020-12-16] MEDS: CHOLECALCIFEROL (VIT D3) 2,000 UNITS [50 MCG] TABLET PO SCH (08:08)
[2020-12-16] MEDS: MULTIVITAMINS WITH MINERALS, THERAPEUTIC TABLET PO SCH (08:08)
[2020-12-16] MEDS: ASCORBIC ACID 500 MG TABLET PO SCH ×2 (08:08→21:00)
[2020-12-16] MEDS: OXYGEN THERAPY IH SCH ×2 (08:11→21:26)
[2020-12-16 08:40] LABS: HEMOGLOBIN A1C 7.2 % (3.8-5.6)
[2020-12-16 08:42] LABS: CHOL/HDL RATIO 2.5 (3.9-5.7); THYROID STIMULATING HORMONE 0.09 uIU/mL (0.36-3.74)
[2020-12-16] MEDS: SitaGLIPtin PHOSPHATE 50 MG TABLET PO SCH (10:25)
[2020-12-16 15:04] LABS: GLUCOMETER DEV NAME(LOC) 2WR.2B; GLUCOSE,POINT OF CARE 280 MG/DL (70-110)
[2020-12-16 15:48] VITALS: BP 159/89
[2020-12-16] MEDS: ALBUTEROL SULFATE HFA 90 MCG/PUFF 8 GM INHALER IH PRN (16:02)
[2020-12-16 19:28] LABS: GLUCOMETER DEV NAME(LOC) 2WR.1C; GLUCOSE,POINT OF CARE 364 MG/DL (70-110)
[2020-12-16] MEDS: SENNA 187 MG TABLET PO SCH (20:59)
[2020-12-16] MEDS: MELATONIN 3 MG TABLET PO SCH (21:00)
[2020-12-16 21:36] LABS: GLUCOMETER DEV NAME(LOC) 2WR.1C; GLUCOSE,POINT OF CARE 283 MG/DL (70-110)
[2020-12-17 00:19] VITALS: BP 136/67
[2020-12-17] MEDS: ALBUTEROL SULFATE HFA 90 MCG/PUFF 8 GM INHALER IH PRN ×2 (06:06→12:46)
[2020-12-17 06:14] LABS: GLUCOMETER DEV NAME(LOC) 2WR.2B; GLUCOSE,POINT OF CARE 254 MG/DL (70-110)
[2020-12-17] MEDS: ASCORBIC ACID 500 MG TABLET PO SCH ×2 (07:50→20:10)
[2020-12-17] MEDS: AmLODIPine BESYLATE 5 MG TABLET PO SCH (07:50)
[2020-12-17] MEDS: BENZONATATE 100 MG CAPSULE PO SCH ×3 (07:50→23:34)
[2020-12-17] MEDS: FAMOTIDINE 20 MG TABLET PO SCH (07:50)
[2020-12-17] MEDS: APIXABAN 5 MG TABLET PO SCH ×2 (07:50→20:10)
[2020-12-17] MEDS: MetFORMIN HCL 500 MG TABLET PO SCH ×2 (07:50→17:24)
[2020-12-17] MEDS: MULTIVITAMINS WITH MINERALS, THERAPEUTIC TABLET PO SCH (07:50)
[2020-12-17] MEDS: CHOLECALCIFEROL (VIT D3) 2,000 UNITS [50 MCG] TABLET PO SCH (07:50)
[2020-12-17] MEDS: DOCUSATE SODIUM 100 MG CAPSULE PO SCH ×2 (07:50→20:10)
[2020-12-17] MEDS: SitaGLIPtin PHOSPHATE 50 MG TABLET PO SCH (07:50)
[2020-12-17] MEDS: DEXAMETHASONE 4 MG TABLET PO SCH (07:50)
[2020-12-17] MEDS: ZINC SULFATE 220 MG CAPSULE PO SCH ×2 (07:51→20:10)
[2020-12-17] MEDS: INSULIN LISPRO 100 UNITS/ML SQ PRN ×4 (07:57→20:12)
[2020-12-17] MEDS: OXYGEN THERAPY IH SCH ×2 (08:00→20:14)
[2020-12-17 08:01] VITALS: BP 141/78
[2020-12-17] MEDS: INSULIN GLARGINE,HUM.REC.ANLOG 100 UNITS/ML SQ SCH ×2 (09:52→20:12)
[2020-12-17] MEDS: ACETAMINOPHEN 325 MG TABLET PO PRN (12:46)
[2020-12-17 14:51] LABS: GLUCOMETER DEV NAME(LOC) 2WR.2B; GLUCOSE,POINT OF CARE 336 MG/DL (70-110)
[2020-12-17 17:00] VITALS: BP 154/77
[2020-12-17 18:42] LABS: GLUCOMETER DEV NAME(LOC) 2WR.1C; GLUCOSE,POINT OF CARE 327 MG/DL (70-110)
[2020-12-17] MEDS: SENNA 187 MG TABLET PO SCH (20:10)
[2020-12-17] MEDS: MELATONIN 3 MG TABLET PO SCH (20:10)
[2020-12-17 21:29] LABS: GLUCOMETER DEV NAME(LOC) 2WR.1C; GLUCOSE,POINT OF CARE 385 MG/DL (70-110)
[2020-12-18 00:39] VITALS: BP 135/79
[2020-12-18 06:26] LABS: GLUCOMETER DEV NAME(LOC) 2WR.2B; GLUCOSE,POINT OF CARE 228 MG/DL (70-110)
[2020-12-18 08:00] VITALS: BP 156/85
[2020-12-18] MEDS: OXYGEN THERAPY IH SCH ×2 (08:04→19:23)
[2020-12-18] MEDS: MetFORMIN HCL 500 MG TABLET PO SCH ×2 (08:04→16:04)
[2020-12-18] MEDS: FAMOTIDINE 20 MG TABLET PO SCH (08:05)
[2020-12-18] MEDS: DOCUSATE SODIUM 100 MG CAPSULE PO SCH ×2 (08:05→20:11)
[2020-12-18] MEDS: AmLODIPine BESYLATE 5 MG TABLET PO SCH (08:05)
[2020-12-18] MEDS: BENZONATATE 100 MG CAPSULE PO SCH ×3 (08:05→23:53)
[2020-12-18] MEDS: MULTIVITAMINS WITH MINERALS, THERAPEUTIC TABLET PO SCH (08:05)
[2020-12-18] MEDS: CHOLECALCIFEROL (VIT D3) 2,000 UNITS [50 MCG] TABLET PO SCH (08:05)
[2020-12-18] MEDS: SitaGLIPtin PHOSPHATE 50 MG TABLET PO SCH (08:05)
[2020-12-18] MEDS: ASCORBIC ACID 500 MG TABLET PO SCH ×2 (08:05→20:11)
[2020-12-18] MEDS: APIXABAN 5 MG TABLET PO SCH ×2 (08:05→20:11)
[2020-12-18] MEDS: ZINC SULFATE 220 MG CAPSULE PO SCH ×2 (08:05→20:11)
[2020-12-18] MEDS: INSULIN GLARGINE,HUM.REC.ANLOG 100 UNITS/ML SQ SCH ×2 (08:08→20:24)
[2020-12-18] MEDS: INSULIN LISPRO 100 UNITS/ML SQ PRN ×3 (08:09→20:24)
[2020-12-18 11:51] LABS: GLUCOMETER DEV NAME(LOC) 2WR.2B; GLUCOSE,POINT OF CARE 267 MG/DL (70-110)
[2020-12-18] MEDS: ATENOLOL 25 MG TABLET PO SCH (12:24)
[2020-12-18 16:57] VITALS: BP 146/76
[2020-12-18 18:53] LABS: GLUCOMETER DEV NAME(LOC) 2WR.2B; GLUCOSE,POINT OF CARE 135 MG/DL (70-110)
[2020-12-18] MEDS: SENNA 187 MG TABLET PO SCH (20:11)
[2020-12-18] MEDS: MELATONIN 3 MG TABLET PO SCH (20:11)
[2020-12-18 21:26] LABS: GLUCOMETER DEV NAME(LOC) 2WR.1C; GLUCOSE,POINT OF CARE 147 MG/DL (70-110)
[2020-12-19] VITALS: BP 123/66
[2020-12-19 06:25] LABS: GLUCOMETER DEV NAME(LOC) 2WR.2B; GLUCOSE,POINT OF CARE 70 MG/DL (70-110)
[2020-12-19] MEDS: BENZONATATE 100 MG CAPSULE PO SCH ×3 (08:07→23:47)
[2020-12-19] MEDS: OXYGEN THERAPY IH SCH ×2 (08:07→20:00)
[2020-12-19] MEDS: MetFORMIN HCL 500 MG TABLET PO SCH ×2 (08:07→16:10)
[2020-12-19] MEDS: MULTIVITAMINS WITH MINERALS, THERAPEUTIC TABLET PO SCH (08:08)
[2020-12-19] MEDS: FAMOTIDINE 20 MG TABLET PO SCH (08:08)
[2020-12-19] MEDS: SitaGLIPtin PHOSPHATE 50 MG TABLET PO SCH (08:08)
[2020-12-19] MEDS: ASCORBIC ACID 500 MG TABLET PO SCH ×2 (08:08→20:14)
[2020-12-19] MEDS: DOCUSATE SODIUM 100 MG CAPSULE PO SCH ×2 (08:08→20:14)
[2020-12-19] MEDS: AmLODIPine BESYLATE 5 MG TABLET PO SCH (08:08)
[2020-12-19] MEDS: ATENOLOL 25 MG TABLET PO SCH (08:08)
[2020-12-19] MEDS: CHOLECALCIFEROL (VIT D3) 2,000 UNITS [50 MCG] TABLET PO SCH (08:08)
[2020-12-19] MEDS: APIXABAN 5 MG TABLET PO SCH ×2 (08:08→20:14)
[2020-12-19] MEDS: ZINC SULFATE 220 MG CAPSULE PO SCH ×2 (08:08→20:14)
[2020-12-19 08:10] VITALS: BP 130/65
[2020-12-19] MEDS: INSULIN GLARGINE,HUM.REC.ANLOG 100 UNITS/ML SQ SCH ×2 (08:13→21:34)
[2020-12-19 17:04] VITALS: BP 132/66
[2020-12-19] MEDS: INSULIN LISPRO 100 UNITS/ML SQ PRN (17:52)
[2020-12-19 18:17] LABS: GLUCOMETER DEV NAME(LOC) 2WR.1C; GLUCOSE,POINT OF CARE 203 MG/DL (70-110)
[2020-12-19 18:17] LABS: GLUCOMETER DEV NAME(LOC) 2WR.2B; GLUCOSE,POINT OF CARE 183 MG/DL (70-110)
[2020-12-19] MEDS: MELATONIN 3 MG TABLET PO SCH (20:14)
[2020-12-19] MEDS: SENNA 187 MG TABLET PO SCH (20:14)
[2020-12-19 23:24] LABS: GLUCOMETER DEV NAME(LOC) 2WR.2B; GLUCOSE,POINT OF CARE 124 MG/DL (70-110)
[2020-12-20] VITALS: BP 139/69
[2020-12-20 06:22] LABS: GLUCOMETER DEV NAME(LOC) 2WR.1C; GLUCOSE,POINT OF CARE 88 MG/DL (70-110)
[2020-12-20 07:16] VITALS: BP 136/71
[2020-12-20] MEDS: OXYGEN THERAPY IH SCH ×2 (08:27→20:00)
[2020-12-20] MEDS: BENZONATATE 100 MG CAPSULE PO SCH ×3 (08:28→23:18)
[2020-12-20] MEDS: FAMOTIDINE 20 MG TABLET PO SCH (08:28)
[2020-12-20] MEDS: AmLODIPine BESYLATE 5 MG TABLET PO SCH (08:28)
[2020-12-20] MEDS: DOCUSATE SODIUM 100 MG CAPSULE PO SCH ×2 (08:28→20:10)
[2020-12-20] MEDS: ATENOLOL 25 MG TABLET PO SCH (08:28)
[2020-12-20] MEDS: APIXABAN 5 MG TABLET PO SCH ×2 (08:28→20:10)
[2020-12-20] MEDS: ZINC SULFATE 220 MG CAPSULE PO SCH ×2 (08:29→20:10)
[2020-12-20] MEDS: ASCORBIC ACID 500 MG TABLET PO SCH ×2 (08:29→20:10)
[2020-12-20] MEDS: MULTIVITAMINS WITH MINERALS, THERAPEUTIC TABLET PO SCH (08:29)
[2020-12-20] MEDS: CHOLECALCIFEROL (VIT D3) 2,000 UNITS [50 MCG] TABLET PO SCH (08:29)
[2020-12-20] MEDS: SitaGLIPtin PHOSPHATE 50 MG TABLET PO SCH (08:47)
[2020-12-20] MEDS: MetFORMIN HCL 500 MG TABLET PO SCH ×2 (08:47→17:17)
[2020-12-20] MEDS: INSULIN GLARGINE,HUM.REC.ANLOG 100 UNITS/ML SQ SCH ×2 (08:50→20:26)
[2020-12-20] MEDS: ACETAMINOPHEN 325 MG TABLET PO PRN (10:12)
[2020-12-20 11:13] LABS: BASOPHILS % (AUTO) 0.3 % (0.0-2.0); EOSINOPHILS % (AUTO) 0.5 % (1.0-6.0); HEMATOCRIT 37.8 % (36-46); HEMOGLOBIN 12.5 g/dL (12.0-16.0); LYMPHOCYTES # (AUTO) 1.7 K/uL (1.0-4.8); LYMPHOCYTES % (AUTO) 18.8 % (22.0-44.0); MEAN CORPUSCULAR HGB CONC 33.1 G/dL (31.0-37.0); MEAN CORPUSCULAR VOLUME 94 fL (80-100); MONOCYTES # (AUTO) 0.5 K/uL (0.1-1.0); MONOCYTES % (AUTO) 5.8 % (2.0-9.0); NEUTROPHILS # (AUTO) 6.8 K/uL (1.8-7.7); NEUTROPHILS % (AUTO) 74.6 % (40.0-70.0); PLATELET COUNT (AUTO) 158 K/uL (150-450); RED BLOOD CELL COUNT(AUTO) 4.03 MIL/uL (4.00-5.20); RED CELL DISTRIBUTION WIDTH 13.8 % (11.5-14.5)
[2020-12-20 11:30] LABS: ANION GAP 6 mmol/L (8-16); CALCIUM, TOTAL 9.5 mg/dL (8.8-10.5); CARBON DIOXIDE 29 mmol/L (22-29); CHLORIDE 106 mmol/L (98-107); CREATININE 0.65 mg/dL (0.60-1.30); GLOMERULAR FILTR. RATE CALC > 60 mL/min (>60); GLUCOSE,RANDOM 255 mg/dL (70-110); POTASSIUM 4.2 mmol/L (3.5-5.1); SODIUM SERUM 141 mmol/L (136-145); UREA NITROGEN, BLOOD 17 mg/dL (7-18)
[2020-12-20] MEDS: INSULIN LISPRO 100 UNITS/ML SQ PRN ×3 (12:12→20:26)
[2020-12-20 14:14] LABS: GLUCOMETER DEV NAME(LOC) 2WR.2B; GLUCOSE,POINT OF CARE 199 MG/DL (70-110)
[2020-12-20 16:49] VITALS: BP 123/73
[2020-12-20] MEDS: SENNA 187 MG TABLET PO SCH (20:10)
[2020-12-20] MEDS: MELATONIN 3 MG TABLET PO SCH (20:10)
[2020-12-20 23:08] LABS: GLUCOMETER DEV NAME(LOC) 2WR.2B; GLUCOSE,POINT OF CARE 162 MG/DL (70-110)
[2020-12-20 23:08] LABS: GLUCOMETER DEV NAME(LOC) 2WR.1C; GLUCOSE,POINT OF CARE 180 MG/DL (70-110)
[2020-12-21] VITALS: BP 128/57
[2020-12-21 06:25] LABS: GLUCOMETER DEV NAME(LOC) 2WR.2B; GLUCOSE,POINT OF CARE 141 MG/DL (70-110)
[2020-12-21 07:48] VITALS: BP 143/77
[2020-12-21] MEDS: OXYGEN THERAPY IH SCH (08:05)
[2020-12-21] MEDS: MetFORMIN HCL 500 MG TABLET PO SCH (08:05)
[2020-12-21] MEDS: SitaGLIPtin PHOSPHATE 50 MG TABLET PO SCH (08:06)
[2020-12-21] MEDS: CHOLECALCIFEROL (VIT D3) 2,000 UNITS [50 MCG] TABLET PO SCH (08:06)
[2020-12-21] MEDS: FAMOTIDINE 20 MG TABLET PO SCH (08:06)
[2020-12-21] MEDS: ZINC SULFATE 220 MG CAPSULE PO SCH (08:06)
[2020-12-21] MEDS: MULTIVITAMINS WITH MINERALS, THERAPEUTIC TABLET PO SCH (08:06)
[2020-12-21] MEDS: BENZONATATE 100 MG CAPSULE PO SCH (08:06)
[2020-12-21] MEDS: DOCUSATE SODIUM 100 MG CAPSULE PO SCH (08:06)
[2020-12-21] MEDS: ATENOLOL 25 MG TABLET PO SCH (08:06)
[2020-12-21] MEDS: ASCORBIC ACID 500 MG TABLET PO SCH (08:06)
[2020-12-21] MEDS: APIXABAN 5 MG TABLET PO SCH (08:06)
[2020-12-21] MEDS: AmLODIPine BESYLATE 5 MG TABLET PO SCH (08:06)
[2020-12-21] MEDS: INSULIN GLARGINE,HUM.REC.ANLOG 100 UNITS/ML SQ SCH (08:09)
[2020-12-21] MEDS: INSULIN LISPRO 100 UNITS/ML SQ PRN ×2 (08:11→12:08)
[2020-12-21] MEDS ORDERED: METF-960 PO (08:51)
[2020-12-21] MEDS ORDERED: SITA50 PO (08:51)
[2020-12-21] MEDS ORDERED: MELA3TAB89 PO (08:52)
[2020-12-21] MEDS ORDERED: DOCU-275 PO (08:52)
[2020-12-21] MEDS ORDERED: SENN8.6T20 PO (08:54)
[2020-12-21] MEDS ORDERED: ALBU8HFA IH (08:55)
[2020-12-21] MEDS ORDERED: ASPI-1450 PO (10:22)
[2020-12-21 11:53] LABS: COVID AG,FIA SOURCE NASOPHARYNGEAL
[2020-12-22 05:32] LABS: GLUCOMETER DEV NAME(LOC) 2WR.1C; GLUCOSE,POINT OF CARE 167 MG/DL (70-110)
== END 2020-12-21 13:30 | disposition home health service (06) | DRG 947 ==
LOC: UNDOADMIN 22:34 → 6N 22:34 → 2WR 12-15 11:06
PROVIDERS: ADMIT Physical Medicine & Rehabilitation; ATTEND Physical Medicine & Rehabilitation
DX: R53.81 Other malaise (principal); U07.1 COVID-19; J12.82 Pneumonia due to coronavirus disease 2019; E43 Unspecified severe protein-calorie malnutrition; J80 Acute respiratory distress syndrome; G81.94 Hemiplegia, unspecified affecting left nondominant side; E66.9 Obesity, unspecified; E11.65 Type 2 diabetes mellitus with hyperglycemia; I10 Essential (primary) hypertension; D63.8 Anemia in other chronic diseases classified elsewhere; E55.9 Vitamin D deficiency, unspecified; G14 Postpolio syndrome; R00.0 Tachycardia, unspecified; G31.84 Mild cognitive impairment of uncertain or unknown etiology; Z79.01 Long term (current) use of anticoagulants; Z88.1 Allergy status to other antibiotic agents; Z68.32 Body mass index [BMI] 32.0-32.9, adult; Z88.6 Allergy status to analgesic agent; Z90.49 Acquired absence of other specified parts of digestive tract
CPT/HCPCS: 83036; 84443; 87426; 92507; 92523; 97110; 97116; 97162; 97166; 97530; 97535; 99366; A9575; J1815; J8540

== ENCOUNTER → 2021-02-04 | Outpatient (CLI) | payer MEDICARE, OTHER ==
[~2021-02-04] VITALS: Ht 152.4 cm; Wt 84.0 kg
[~2021-02-04] MED LIST changes: +ALBU8HFA IH; -AMLO10TA55 PO; -APIX5TAB PO; +ASPI-1450 PO; -DEXA1 PO; +DOCU-275 PO; -LEVO750T68 PO; -LISI-894 PO; +MELA3TAB89 PO; -METF-444 PO; +METF-960 PO; +SENN8.6T20 PO; -SITA1TAB6 PO; +SITA50 PO
[2021-02-04 10:05] VITALS: BP 127/69
== END | disposition home or self-care (01) ==
LOC: SRCNTR 09:48
PROVIDERS: ATTEND Internal Medicine Critical Care Medicine
DX: I10 Essential (primary) hypertension (principal); E11.9 Type 2 diabetes mellitus without complications; R05 Cough; R06.00 Dyspnea, unspecified; R53.83 Other fatigue; B91 Sequelae of poliomyelitis; R53.1 Weakness; Z86.16 Personal history of COVID-19
CPT/HCPCS: G0463

== ENCOUNTER → 2021-02-04 | Outpatient (CLI) | payer MEDICARE, OTHER | END | disposition home or self-care (01) | LOC: RADPV 11:19 | PROVIDERS: ATTEND Internal Medicine Critical Care Medicine | DX: M40.294 Other kyphosis, thoracic region (principal); Z86.16 Personal history of COVID-19 | CPT/HCPCS: 71046 ==

== ENCOUNTER → 2021-03-08 | Outpatient (CLI) | payer MEDICARE, OTHER ==
[2021-03-08 10:48] VITALS: BP 112/50
== END | disposition home or self-care (01) ==
LOC: SRCNTR 09:56
PROVIDERS: ATTEND Internal Medicine Critical Care Medicine
DX: R05 Cough (principal); R06.00 Dyspnea, unspecified; R53.83 Other fatigue; E11.9 Type 2 diabetes mellitus without complications; I10 Essential (primary) hypertension; E66.9 Obesity, unspecified; Z86.16 Personal history of COVID-19; Z79.899 Other long term (current) drug therapy; Z79.82 Long term (current) use of aspirin; Z88.6 Allergy status to analgesic agent; Z88.8 Allergy status to other drugs, medicaments and biological substances
CPT/HCPCS: G0463

== ENCOUNTER → 2021-03-08 | Outpatient (CLI) | payer MEDICARE, OTHER | END | disposition home or self-care (01) | LOC: LABPV 12:04 | PROVIDERS: ATTEND Internal Medicine Critical Care Medicine | DX: E68 Sequelae of hyperalimentation (principal); Z79.899 Other long term (current) drug therapy | CPT/HCPCS: 84443 ==

== ENCOUNTER → 2021-09-09 | Outpatient (CLI) | payer MEDICARE, OTHER ==
[~2021-09-09] VITALS: Ht 152.4 cm; Wt 88.6 kg
[~2021-09-09] MED LIST changes: +CHOL-35 PO; -CHOL100044 PO; +DOCU-270 PO; -DOCU-275 PO; +METF-1211 PO; -METF-960 PO
[2021-09-09 10:54] VITALS: BP 126/64
== END | disposition home or self-care (01) ==
LOC: SRCNTR 10:22
PROVIDERS: ATTEND Internal Medicine Critical Care Medicine
DX: E11.9 Type 2 diabetes mellitus without complications (principal); I10 Essential (primary) hypertension; R05.9 Cough, unspecified; R06.00 Dyspnea, unspecified; G14 Postpolio syndrome; R53.83 Other fatigue; E66.9 Obesity, unspecified; R53.1 Weakness; Z86.16 Personal history of COVID-19
CPT/HCPCS: G0463

== ENCOUNTER 2021-11-17 04:05 | Emergency (ER) | payer MEDICARE, OTHER ==
[~2021-11-17] VITALS: Ht 157.5 cm; Wt 95.0 kg
[2021-11-17] MEDS ORDERED: ATEN-73 PO (04:19)
[2021-11-17] MEDS ORDERED: LISI-893 PO (04:19)
[2021-11-17 04:56] LABS: EOSINOPHILS % (AUTO) 3.3 % (1.0-6.0); HEMATOCRIT 37.5 % (36-46); HEMOGLOBIN 12.6 g/dL (12.0-16.0); LYMPHOCYTES # (AUTO) 4.4 K/uL (1.0-4.8); LYMPHOCYTES % (AUTO) 47.5 % (22.0-44.0); MEAN CORPUSCULAR HEMOGLOBIN 31.4 pg (26.0-34.0); MEAN CORPUSCULAR HGB CONC 33.6 G/dL (31.0-37.0); MEAN CORPUSCULAR VOLUME 94 fL (80-100); MONOCYTES # (AUTO) 0.6 K/uL (0.1-1.0); MONOCYTES % (AUTO) 6.1 % (2.0-9.0); NEUTROPHILS # (AUTO) 3.9 K/uL (1.8-7.7); NEUTROPHILS % (AUTO) 42.1 % (40.0-70.0); PLATELET COUNT (AUTO) 153 K/uL (150-450); RED BLOOD CELL COUNT(AUTO) 4.01 MIL/uL (4.00-5.20); RED CELL DISTRIBUTION WIDTH 13.5 % (11.5-14.5)
[2021-11-17 05:06] LABS: CALCIUM, TOTAL 10.3 mg/dL (8.8-10.5); CREATININE 0.93 mg/dL (0.60-1.30); POTASSIUM 4.7 mmol/L (3.5-5.1)
[2021-11-17 05:11] LABS: ALBUMIN 3.2 g/dL (3.4-5.0); BILIRUBIN,TOTAL 0.2 mg/dL (0.1-1.0)
[2021-11-17 05:17] VITALS: BP 134/74
[2021-11-17 05:29] LABS: COVID AG,FIA SOURCE NASOPHARYNGEAL
[2021-11-17] MEDS ORDERED: TRIA15CR49 TP (06:57)
== END 2021-11-17 07:23 | disposition home or self-care (01) ==
LOC: EMS 04:05
DX: E11.65 Type 2 diabetes mellitus with hyperglycemia (principal); F41.9 Anxiety disorder, unspecified; L30.9 Dermatitis, unspecified; R06.00 Dyspnea, unspecified; I10 Essential (primary) hypertension; Z20.822 Contact with and (suspected) exposure to COVID-19; Z90.89 Acquired absence of other organs; Z79.4 Long term (current) use of insulin; Z79.84 Long term (current) use of oral hypoglycemic drugs; Z88.6 Allergy status to analgesic agent; Z88.1 Allergy status to other antibiotic agents
CPT/HCPCS: 71045; 80053; 83880; 84484; 85025; 93005; 99285; 36415-L1; 36415-TC

== ENCOUNTER 2023-02-01 08:57 | Emergency (ER) | payer MEDICARE, OTHER ==
[~2023-02-01] VITALS: Ht 160 cm; Wt 95.9 kg
[~2023-02-01 08:57] MED LIST changes: +ALBU18HF12 IH; -ALBU8HFA IH; +ATEN-73 PO; -CHOL-35 PO; +CHOL25TA4 PO; -DOCU-270 PO; +DOCU-385 PO; +LISI-893 PO; +TRIA15CR49 TP
[2023-02-01] MEDS ORDERED: LISI40TA9 PO (09:16)
[2023-02-01] MEDS ORDERED: PROC10TA61 PO (09:16)
[2023-02-01] MEDS ORDERED: AMLO10TA55 PO (09:16)
[2023-02-01] MEDS ORDERED: SITA1TAB6 PO (09:16)
[2023-02-01 09:47] LABS: HEMATOCRIT 40.7 % (36-46); HEMOGLOBIN 13.2 g/dL (12.0-16.0); MEAN CORPUSCULAR HEMOGLOBIN 30.2 pg (26.0-34.0); MEAN CORPUSCULAR HGB CONC 32.4 G/dL (31.0-37.0); MEAN CORPUSCULAR VOLUME 93 fL (80-100); PLATELET COUNT (AUTO) 76 K/uL (150-450); RED BLOOD CELL COUNT(AUTO) 4.36 MIL/uL (4.00-5.20); RED CELL DISTRIBUTION WIDTH 13.4 % (11.5-14.5)
[2023-02-01 09:54] LABS: ANION GAP 6 mmol/L (8-16); CALCIUM, TOTAL 9.1 mg/dL (8.8-10.5); CARBON DIOXIDE 26 mmol/L (22-29); CHLORIDE 102 mmol/L (98-107); CREATININE 0.64 mg/dL (0.60-1.30); GLOMERULAR FILTR. RATE CALC > 60 mL/min (>60); GLUCOSE,RANDOM 164 mg/dL (70-110); POTASSIUM 4.2 mmol/L (3.5-5.1); PROTHROMBIN TIME 10.5 SEC (9.4-11.6); SODIUM SERUM 134 mmol/L (136-145); UREA NITROGEN, BLOOD 8 mg/dL (7-18)
[2023-02-01 09:56] LABS: B-TYPE NATRIURETIC PEPTIDE 11 pg/mL (0-100)
[2023-02-01 09:57] LABS: ALANINE AMINOTRANSFERASE 27 U/L (12-78); ALBUMIN 2.6 g/dL (3.4-5.0); ALKALINE PHOSPHATASE 76 U/L (46-116); ASPARTATE AMINOTRANSFERASE 15 U/L (15-37); BILIRUBIN,TOTAL 0.5 mg/dL (0.1-1.0)
[2023-02-01 10:02] LABS: LACTIC ACID 1.7 mmol/L (0.4-2.0)
[2023-02-01] MEDS ORDERED: SODIUM CHLORIDE 0.9% 1,000 ML IV ONE (10:15)
[2023-02-01 10:58] LABS: BAND NEUTROPHILS % (MANUAL) 0 % (0-5)
[2023-02-01 11:02] LABS: BUFFY COAT SMEAR PREP YES (NOT DONE)
[2023-02-01 11:03] LABS: PATHOLOGY REVIEW, DIFF YES
[2023-02-01] MEDS ORDERED: MORPHINE SULFATE 4 MG/ML SYRINGE IM ONE (11:45)
[2023-02-01] MEDS ORDERED: ONDANSETRON HCL 4 MG TABLET PO ONE (11:45)
[2023-02-01 13:27] VITALS: BP 147/99
[2023-02-01] MEDS ORDERED: CEFDINIR 300 MG CAPSULE PO ONE (13:45)
[2023-02-05 13:52] LABS: LYMPHOCYTES % (MANUAL) 82 % (22-44); MONOCYTES % (MANUAL) 18 % (2-9)
== END 2023-02-01 14:33 | disposition home or self-care (01) ==
LOC: EMS 08:59
DX: R07.89 Other chest pain (principal); M19.90 Unspecified osteoarthritis, unspecified site; E11.9 Type 2 diabetes mellitus without complications; I10 Essential (primary) hypertension; Z90.49 Acquired absence of other specified parts of digestive tract; Z98.890 Other specified postprocedural states; Z88.5 Allergy status to narcotic agent; Z88.8 Allergy status to other drugs, medicaments and biological substances
CPT/HCPCS: 99285; 96360; 71045; 80053; 83605; 83880; 84484; 85025; 85610; 85730; 93005; 96372; J2270; Q0162; Q9967; J7030